=== PATIENT | male | born 1990 | race Caucasian/White ===

== ENCOUNTER 2018-04-16 15:23 | Emergency (ER) | payer MEDICAID ==
[~2018-04-16] VITALS: Ht 182.9 cm; Wt 81.8 kg
[2018-04-16] MEDS ORDERED: CLON.5 PO (15:26)
[2018-04-16] MEDS ORDERED: TRAZ-144 PO (15:26)
[2018-04-16] MEDS ORDERED: ALPR0.255 PO (15:26)
[2018-04-16 16:56] VITALS: BP 127/88
== END 2018-04-16 16:58 | disposition home or self-care (01) ==
LOC: EMS 15:28
DX: F15.10 Other stimulant abuse, uncomplicated (principal); F11.23 Opioid dependence with withdrawal; F17.210 Nicotine dependence, cigarettes, uncomplicated; F12.10 Cannabis abuse, uncomplicated; Z79.899 Other long term (current) drug therapy
CPT/HCPCS: 99283